=== PATIENT | male | born 1940 | race Caucasian/White ===

== ENCOUNTER 2017-03-25 11:48 | Emergency (ER) | payer OTHER ==
[~2017-03-25] VITALS: Ht 182.9 cm; Wt 84.1 kg
[~2017-03-25 11:48] MED LIST: BICALUTAMIDE50 MG PO; CALCARB 600 W-1 EACH PO; CELECOXIB200 MG PO; CELEXA40 MG PO; COUMADIN5 MG PO; COUMADIN7.5 MG PO; Coumadin Protocol PO; FERROUS GLUCON240 MG PO; HYDROCODON-ACE1 EAC7 PO; LOVENOX100 MG/1 M SC; Lopressor PO; METOPROLOL TAR100 MG PO; MULTIVITAMIN1 EAC2 PO; POMEGRANATE PO; PREDNISONE5 MG PO; Senokot S,Pericolace PO; THERAGRAN1 TABLET PO; TRELSTAR IM; Vicodin,Norco 5/325 PO; WARFARIN SODIU7.5 MG PO; ZETIA10 MG PO; ZOLADEX IM; ZOLADEX10.8 MG SC; ZYTIGA250 MG PO; celeBREX PO; celeXA PO
[2017-03-25 13:33] LABS: HEMATOCRIT 31.9 % (38.0-50.0); MCH 26.6 PG (29.0-34.0); MCHC 31.7 G/DL (30.0-36.0); MCV 83.9 FL (86-99); MEAN PLAT.VOLUME 10.4 uM^3 (9.0-12.4); PLATELET COUNT 95 K/uL (156-360); RBC DIS.WIDTH-CV 15.6 % (11.8-14.6); RBC DIS.WIDTH-SD 46.6 % (39-53); WHITE BLOOD COUNT 2.8 K/uL (4.1-10.2)
[2017-03-25 13:33] LABS: ADD MIUA? YES; BILIRUBIN NEGATIVE; BLOOD NEGATIVE; COLOR YELLOW ((YELLOW)); GLUCOSE (STRIP) NEGATIVE; KETONES NEGATIVE; LEUKOCYTES NEGATIVE; NITRITE NEGATIVE; PROTEIN (STRIP) NEGATIVE; SPECIFIC GRAVITY 1.019 (1.000-1.030); UROBILINOGEN 0.2 MG/DL (0.2-1.0)
[2017-03-25 13:38] LABS: BACTERIA RARE /HPF; EPITHELIAL CELLS RARE /HPF; MUCUS NONE SEEN /LPF; RED BLOOD CELLS 0-5 /HPF (0-5); UCUL ADDED? NO; WHITE BLOOD CELLS 0-5 /HPF (0-5)
[2017-03-25 13:41] LABS: CHLORIDE 107 mEq/L (99-109); POTASSIUM 4.1 mEq/L (3.7-5.4); SODIUM 140 mEq/L (136-147)
[2017-03-25 13:43] LABS: GLUCOSE 97 mg/dL (70-99)
[2017-03-25 13:45] LABS: ANION GAP 11 MEQ/L (2-14); TOTAL BILIRUBIN 1.1 mg/dL (0.0-1.0)
[2017-03-25 13:47] LABS: ALKALINE PHOSPHATASE 62 IU/L (3-129); GFR ESTIMATE (CALCULATED) > 59 mL/min/
[2017-03-25 13:48] LABS: UREA NITROGEN (BUN) 21 mg/dL (9-23)
[2017-03-25 15:51] VITALS: BP 142/70
== END 2017-03-25 15:51 | disposition home or self-care (01) ==
LOC: EME 11:48
PROVIDERS: Emergency Medicine
DX: R53.1 Weakness (principal); D46.9 Myelodysplastic syndrome, unspecified; D63.8 Anemia in other chronic diseases classified elsewhere; I10 Essential (primary) hypertension; Z87.442 Personal history of urinary calculi; Z85.46 Personal history of malignant neoplasm of prostate; Z79.01 Long term (current) use of anticoagulants; Z88.6 Allergy status to analgesic agent; Z87.891 Personal history of nicotine dependence
CPT/HCPCS: 80053; 81003; 85027; 99281; 99284

== ENCOUNTER → 2017-07-24 | Outpatient (CLI) | payer OTHER ==
[~2017-07-24] MED LIST changes: +CITROMA296 ML PO; +COLACE100 MG PO; +VIDAZA100 MG SC
[2017-07-24 13:21] LABS: HEMATOCRIT 25.7 % (38.0-50.0); MCH 26.7 PG (29.0-34.0); MCHC 31.1 G/DL (30.0-36.0); MCV 85.7 FL (86-99); NRBC (%) 1.2 /100 WBC (0-0); PLATELET COUNT 84 K/uL (156-360); RBC DIS.WIDTH-CV 15.2 % (11.8-14.6); RBC DIS.WIDTH-SD 46.1 % (39-53); WHITE BLOOD COUNT 2.6 K/uL (4.1-10.2)
== END | disposition home or self-care (01) ==
LOC: LAB 12:33 → IVINF 12:33
PROVIDERS: Anesthesiology
DX: D64.9 Anemia, unspecified (principal)
CPT/HCPCS: 36415; 85027; 86850; 86900; 86901; 86920

== ENCOUNTER → 2017-08-17 | Outpatient (CLI) | payer OTHER ==
[~2017-08-17] MED LIST changes: +FLOMAX0.4 MG PO
[2017-08-17 08:33] LABS: HEMATOCRIT 33.5 % (38.0-50.0); HEMOGLOBIN 10.4 G/DL (12.5-16.6); MCH 27.5 PG (29.0-34.0); MCV 88.6 FL (86-99); PLATELET COUNT 72 K/uL (156-360); RBC DIS.WIDTH-CV 15.9 % (11.8-14.6); RED BLOOD COUNT 3.78 M/uL (4.00-5.50); WHITE BLOOD COUNT 2.3 K/uL (4.1-10.2)
[2017-08-17 10:50] LABS: POLYCHROMASIA 1+
[2017-08-17 10:51] LABS: ANISOCYTOSIS 2+; MICROCYTOSIS 1+; PLAT.SUFFICIENCY DECREASED
== END | disposition home or self-care (01) ==
LOC: OPR 08-09 09:00 → EDSTATUS 09:00
PROVIDERS: Anesthesiology
DX: D46.9 Myelodysplastic syndrome, unspecified (principal); C61 Malignant neoplasm of prostate; I71.4 Abdominal aortic aneurysm, without rupture; I35.9 Nonrheumatic aortic valve disorder, unspecified; Z95.2 Presence of prosthetic heart valve; Z79.01 Long term (current) use of anticoagulants
CPT/HCPCS: 77012; 85007; 85027; J3010